=== PATIENT | female | born 1960 | race Caucasian/White ===

== ENCOUNTER → 2023-12-19 08:02 | Outpatient (REF) | payer OTHER, SELFPAY | LOC: HWRCS 08:02 | PROVIDERS: ATTENDING PHYSICIAN Nurse Practitioner | DX: I10 Essential (primary) hypertension (principal); R00.2 Palpitations | CPT/HCPCS: 93306 ==

== ENCOUNTER → 2023-12-20 13:49 | Outpatient (REF) | payer OTHER, SELFPAY | LOC: HWWDC 13:49 | DX: Z12.31 Encounter for screening mammogram for malignant neoplasm of breast (principal); N95.1 Menopausal and female climacteric states; Z13.820 Encounter for screening for osteoporosis | CPT/HCPCS: 77063; 77067; 77080 ==

== ENCOUNTER → 2024-01-17 10:46 | Outpatient (REF) | payer OTHER, SELFPAY | LOC: WDC 10:46 | DX: R92.8 Other abnormal and inconclusive findings on diagnostic imaging of breast (principal) | CPT/HCPCS: 76642 ==